=== PATIENT | female | born 1940 | race Caucasian/White ===

== ENCOUNTER 2019-11-04 08:39 | Emergency (ER) | payer MEDICARE, OTHER ==
[2019-11-04] MEDS ORDERED: Albuterol/Ipratropium NEB.SOL* Albuterol 2.5 MG/Ipratropium 0.5 MG 3 ML INH ONE (09:19)
[2019-11-04] MEDS ORDERED: methylPREDNISolone 125 MG* 2 ML VIAL IM ONE (09:41)
--- NOTE | 2019-11-04 09:55 | ED ---
Shortness of Breath - HPI Summary HPI Summary: 79 yo h/o COPD/chronic bronchitis p/w worsening SOB and cough associated with fatigue x few days per pt and daughter. Pt also stated she has had right lower abd pain radiating to right flank x 6 months whenever she wipes her bottom after BM, denies urinary sx, denies n/v/d. States she has no PCP - History of Current Complaint Chief Complaint: UCRespiratory Time Seen by Provider: 11/04/19 08:42 Hx Obtained From: Patient Onset/Duration: Lasting Days Current Severity: Moderate Aggravating Factors: Deep Breaths Alleviating Factors: Oxygen Associated Signs & Symptoms: Cough (Productive), Chest Pain w/Cough - Allergy/Home Medications Allergies/Adverse Reactions: Allergies Allergy/AdvReac Type Severity Reaction Status Date / Time aspirin Allergy Unknown Unknown Verified 11/04/19 09:08 Reaction Details codeine Allergy Unknown Itching Verified 11/04/19 09:08 Penicillins Allergy Unknown Itching Verified 11/04/19 09:08 Home Medications: Home Medications amLODIPine TAB* [Norvasc 5 mg TAB*] 5 mg PO DAILY 01/06/16 [History Confirmed ] Azithromycin TAB* [Zithromax TAB (Z-JOSE CARLOS) 250 mg #6 tabs] 2 tab PO .TODAY, THEN 1 DAILY #1 jose carlos 11/04/19 [Rx] Carvedilol TAB* [Coreg TAB*] 12.5 mg PO 11/04/19 [History] Oseltamivir CAP* [Tamiflu CAP*] 75 mg PO BID 5 Days #10 cap 11/04/19 [Rx] predniSONE 20 mg TAB [Deltasone 20 MG TAB*] 40 mg PO DAILY 5 Days #10 tab [Rx] PMH/Surg Hx/FS Hx/Imm Hx Previously Healthy: No - COPD and chronic bronchitis Endocrine/Hematology History: Denies: Hx Diabetes Cardiovascular History: Reports: Hx Angina, Hx Hypertension Denies: Hx Congestive Heart Failure, Hx Coronary Artery Disease, Hx Hypercholesterolemia, Hx Myocardial Infarction, Hx Pacemaker/ICD, Hx Valvular Heart Disease Respiratory History: Reports: Hx Asthma, Hx Chronic Obstructive Pulmonary Disease (COPD) History: Denies: Hx Renal Disease Sensory History: Reports: Hx Contacts or Glasses - Reading glasses Denies: Hx Hearing Aid Opthamlomology History: Reports: Hx Contacts or Glasses - Reading glasses Neurological History: Reports: Hx Transient Ischemic Attacks (TIA) - This admission., Other Neuro Impairments/Disorders - Aneurysm behind eye Psychiatric History: Denies: Hx Panic Disorder - Surgical History Surgery Procedure, Year, and Place: ,CARPAL TUNNEL. cardiac cath? Pt is not sure Infectious Disease History: No Infectious Disease History: Denies: Hx Clostridium Difficile, Hx Hepatitis, Hx Human Immunodeficiency Virus (HIV), Hx of Known/Suspected MRSA, Hx Shingles, Hx Tuberculosis, Hx Known/ Suspected VRE, Hx Known/Suspected VRSA, History Other Infectious Disease, Traveled Outside the [place] in Last 30 Days - Social History Alcohol Use: None Alcohol Amount: Upon assessment, pt stated no use of alcohol - ED assm. states weekly use Substance Use Type: Reports: None Smoking Status (MU): Heavy Every Day Tobacco Smoker Type: Cigarettes Amount Used/How Often: Daily, 1/2-1 PPD Length of Time of Smoking/Using Tobacco: Approx 50 years Have You Smoked in the Last Year: Yes Review of Systems Constitutional: Negative Eyes: Negative Positive: Sore Throat Cardiovascular: Negative Positive: Shortness Of Breath, Cough Positive: Abdominal Pain - rightlower radiating to right flank Genitourinary: Negative Musculoskeletal: Negative Skin: Negative All Other Systems Reviewed And Are Negative: Yes Physical Exam - Summary Physical Exam Summary: Vital Signs Reviewed: Yes Appearance: Positive: No Pain Distress Skin: Positive: Warm Head/Face: Positive: Normal Head/Face Inspection Eyes: Positive: Normal ENT: Positive: Normal ENT inspection Dental: Negative: Cervical Lymphadenopathy Neck: Positive: Supple Respiratory/Lung Sounds: Positive: Clear to Auscultation Cardiovascular: Positive: Normal, RRR, S1, S2 Abdomen Description: Positive: mild right lower abd tenderness rad to right flank, adnexal tenderness, w/o CVAT Musculoskeletal: Positive: Normal Neurological: Positive: Normal Psychiatric: Positive: Normal Vital Signs On Initial Exam: Initial Vitals Temp Pulse Resp BP Pulse Ox 37.2 C 62 24 112/91 93 11/04/19 09:11 11/04/19 09:11 11/04/19 09:11 11/04/19 09:11 11/04/19 09:11 Diagnostics - Vital Signs Vital Signs Temp Pulse Resp BP Pulse Ox 11/04/19 09:11 37.2 C 62 24 112/91 93 - Laboratory Lab Statement: Any lab studies that have been ordered have been reviewed, and results considered in the medical decision making process. Course/Dx - Course Assessment/Plan: Rapid flu positive- START tamiflu. CODP exacerabtion and chronic bronchitis-prednisone and azithromycin. right flank and abd pain x 6 months- and CT- revealed 4cm adnexal mass, radiologist recommended transvaginal US but pt declined due to pain, so advised MRI od abdomen with contrast to assess for this mass, advised pt and daughter to follow this new finding, pt has no PCP, they verbalized understanding - Diagnoses Provider Diagnoses: Adnexal mass, Chronic right flank pain, COPD exacerbation, Chronic bronchitis with acute exacerbation, Influenza A Discharge ED - Sign-Out/Discharge Documenting (check all that apply): Patient Departure All imaging exams completed and their final reports reviewed: Yes - Discharge Plan Condition: Stable Disposition: HOME Prescriptions: Azithromycin TAB* [Zithromax TAB (Z-JOSE CARLOS) 250 mg #6 tabs] 2 tab PO .TODAY, THEN 1 DAILY #1 jose carlos Oseltamivir CAP* [Tamiflu CAP*] 75 mg PO BID 5 Days #10 cap predniSONE 20 mg TAB [Deltasone 20 MG TAB*] 40 mg PO DAILY 5 Days #10 tab Patient Education Materials: COPD (Chronic Obstructive Pulmonary Disease) (ED) , Chronic Bronchitis (ED), Shortness of Breath (ED), Pelvic Pain in Women (ED) Additional Instructions: PLEASE GO TO ED OR ESTABLISH CARE WITH A PCP FOR MRI OF ABDOMEN FOR 4CM MASS IN PELVIS FOUND IN RIGHT SIDE OF PELVIS. PELVIC/ABDOMINAL PAIN MAY GET WORSE IF NOT ADDRESSED - Billing Disposition and Condition Condition: STABLE Disposition: Home
[2019-11-04 09:57] LABS: Influenza A Molecular POSITIVE (Negative)
[2019-11-04 13:06] VITALS: BP 142/63
== END 2019-11-04 13:28 | disposition home or self-care (01) ==
LOC: UCCORT 08:39
DX: J44.0 Chronic obstructive pulmonary disease with (acute) lower respiratory infection (principal); J20.9 Acute bronchitis, unspecified; J44.1 Chronic obstructive pulmonary disease with (acute) exacerbation; J10.1 Influenza due to other identified influenza virus with other respiratory manifestations; R10.31 Right lower quadrant pain; G89.29 Other chronic pain; I10 Essential (primary) hypertension; I20.9 Angina pectoris, unspecified; F17.210 Nicotine dependence, cigarettes, uncomplicated; Z79.82 Long term (current) use of aspirin; Z88.5 Allergy status to narcotic agent; Z88.0 Allergy status to penicillin; Z79.52 Long term (current) use of systemic steroids; Z79.899 Other long term (current) drug therapy
CPT/HCPCS: 71046; 74176; 76856; 87651; 93005; 99203; A9270-GY; G0463; J7512